=== PATIENT | female | born 1965 | race Caucasian/White ===

== ENCOUNTER → 2024-01-18 | Outpatient (CLI) | payer OTHER, SELFPAY ==
--- NOTE | 2024-01-18 10:06 | DI.ECHO.S_ITS ---
[facility] : : [address] : : [place] : : [id number] : : Phone: [phone] Echocardiogram Report + + :Name: RITA ARELLANO Study Date: 01/18/2024 Height: 64 in : :Hospital ReadingLocation: Weight: 200 lb: : Gender: Female BSA: 2.0 m2 : :: 1965 Age: 58 yrs : :Reason For Study: OBSTRUCTIVE HYPERTROPHIC CARDIOMYOPATHY : :Ordering Physician: LAMINE, : :BRAYAN Performed By: Joel Chowdhury : :Referring: BRAYAN ZAIDI : + + Interpretation Summary The echo findings are consistent with hypertrophic cardiomyopathy. There is systolic anterior motion of the chordal apparatus. The LVOT was not accurately interrogated by color Doppler so gradient cannot be determined. The ejection fraction is estimated to be 65-70%. Grade II diastolic dysfunction. The left atrium is severely dilated. The right ventricle is normal in size and function. There is mild mitral regurgitation. Pulmonary artery pressures cannot be estimated because of the lack of a measurable TR jet velocity but the IVC suggests a CVP of around 3 mmHg. Procedure: A two-dimensional transthoracic echocardiogram with color flow and Doppler was performed. The study quality was technically adequate. There is no prior echocardiogram noted for this patient. The patient was in sinus rhythm with heart rates between 63-76 bpm during the exam. Left Ventricle: The left ventricle is normal in size. The echo findings are consistent with hypertrophic cardiomyopathy. The LVOT was not accurately interrogated by color Doppler so gradient cannot be determined. The ejection fraction is estimated to be 65-70%. Diastolic parameters suggest a pseudonormalization pattern, consistent with probable elevated filling pressures. Right Ventricle: The right ventricle is normal in size and function. Atria: The left atrium is severely dilated. Right atrial size is normal. The interatrial septum grossly appears intact with no obvious evidence for an atrial septal defect. Mitral Valve: There is mild mitral annular calcification. There is systolic anterior motion of the chordal apparatus. There is no mitral valve stenosis. There is mild mitral regurgitation. Aortic Valve: The aortic valve is not well visualized. There is no aortic valve stenosis. No aortic regurgitation is present. Tricuspid Valve: The tricuspid valve is normal. There is no tricuspid stenosis. No tricuspid regurgitation. Pulmonary artery pressures cannot be estimated because of the lack of a measurable TR jet velocity but the IVC suggests a CVP of around 3 mmHg. Pulmonic Valve: The pulmonic valve is not well visualized. There is no pulmonic valvular stenosis. There is no pulmonic valvular regurgitation. Great Vessels: The aortic root is normal size. The dimensions of the ascending aorta are normal. The IVC is of normal diameter and collapses greater than 50% with a sniff. This suggests a low right atrial pressure of 3 mm Hg. Pericardium/ Pleura There is no pericardial effusion. There is no pleural effusion. MMode/2D Measurements & Calculations LVIDd: 4.2 cm LVOT diam: 1.9 cm LVIDs: 2.1 cm Ao root diam: 2.9 cm FS: 50.0 % asc Aorta Diam: 3.2 cm IVSd: 1.8 cm Ao Arch Diam (Prox Trans): 2.2 cm LVPWd: 1.2 cm LV ascencio. diameter/BSA (cm/m^2): 2.2 LV sys. diameter/BSA (cm/m^2): 1.1 LA A2 area: 30.1 cm2 RA long axis: 4.0 cm LA A4 area: 30.6 cm2 RA area: 11.8 cm2 LA length (vol): 6.8 cm RA vol: 30.0 ml LA vol: 114.4 ml RA : 15.4 ml/m2 LA vol index: 58.5 ml/m2 IVC diam: 1.2 cm RVD1 (basal): 3.8 cm RVD2 (mid): 3.4 cm Doppler Measurements & Calculations Ao V2 max: 244.7 cm/sec LVOT Max Dario: 182.9 cm/sec Ao V2 mean: 189.3 cm/sec LV V1 max P.4 mmHg Ao max P.0 mmHg LV V1 VTI: 46.7 cm Ao mean P.5 mmHg KEON(I,D): 2.0 cm2 Ao V2 VTI: 66.3 cm KEON(V,D): 2.2 cm2 sev ratio: 0.70 KEON indexed to BSA (cm^2/m^2): 1.0 MV E max dario: 89.7 cm/sec PA V2 max: 127.0 cm/sec MV A max dario: 125.5 cm/sec PA V2 mean: 96.5 cm/sec MV E/A: 0.71 PA mean P.0 mmHg Med Peak E' Dario: 4.1 cm/sec PA pr(Accel): 31.0 mmHg E/E' med: 22.0 Lat Peak E' Dario: 6.3 cm/sec E/E' lat: 14.3 E/e' average: 18.1 MV dec time: 0.26 sec SV(LVOT): 135.4 ml Reading Physician:02:08 PM
== END ==
PROVIDERS: Referring Provider Nurse Practitioner Acute Care; Visit Provider Nurse Practitioner Acute Care
DX: I34.81 Nonrheumatic mitral (valve) annulus calcification (principal); I34.0 Nonrheumatic mitral (valve) insufficiency; I42.1 Obstructive hypertrophic cardiomyopathy
CPT/HCPCS: 93306